=== PATIENT | female | born 1945 | race Caucasian/White ===

== ENCOUNTER 2016-11-25 15:56 | Inpatient (IN) | payer BC ==
[~2016-11-25] VITALS: Ht 157.5 cm; Wt 51.3 kg
[2016-11-25 15:56] VITALS: BP_SYST 131
[2016-11-25 16:25] LABS: HEMATOCRIT 39.7 % (36-48); HEMOGLOBIN 13.1 g/dL (12.0-16.0); MEAN CORPUSCULAR HEMOGLOBIN 28 pg (27-31); MEAN CORPUSCULAR HGB CONC 33 % (32-36); MEAN CORPUSCULAR VOLUME 85 fL (79.0-98.0); PLATELET COUNT (AUTO) 248 K/uL (130-430); RED BLOOD CELL COUNT(AUTO) 4.69 MIL/uL (4.2-6.2); RED CELL DISTRIBUTION WIDTH 13.8 % (9.0-15.0)
[2016-11-25 16:30] LABS: CALCIUM 9.6 mg/dL (8.4-11.0); CREATININE 1.07 mg/dL (0.55-1.30)
[2016-11-25] MEDS ORDERED: ONDANSETRON HCL 4 MG/2 ML VIAL IVP ONE (16:30)
[2016-11-25] MEDS ORDERED: NACL 0.9% 1,000 ML IV ONE (16:30)
[2016-11-25 16:33] LABS: POTASSIUM 2.6 mmol/L (3.5-5.1)
[2016-11-25 16:35] LABS: TOTAL BILIRUBIN 0.4 mg/dL (0.0-1.0); TOTAL PROTEIN, SERUM 7.4 g/dL (6.4-8.3)
[2016-11-25 16:38] LABS: BAND % (MANUAL) 5 % (0-6); BASOPHILS % (MANUAL) 0 % (0-2); EOSINOPHILS % (MANUAL) 0 % (0-7); LYMPHOCYTES % (MANUAL) 4 % (20-46); MONOCYTES % (MANUAL) 3 % (0-11)
[2016-11-25 16:46] LABS: PROTHROMBIN TIME 10.7 SECS (9.5-12.5)
[2016-11-25 17:09] LABS: BILIRUBIN,URINE NEGATIVE (NEGATIVE); BLOOD, URINE 2+ (NEGATIVE); CLARITY/URINE CLEAR (CLEAR); COLOR,URINE YELLOW (YELLOW); GLUCOSE,URINE 2+ (NEGATIVE); KETONES,URINE 2+ (NEGATIVE); LEUKOCYTE ESTERASE ,URINE NEGATIVE (NEGATIVE); NITRITE, URINE NEGATIVE (NEGATIVE); PH,URINE 5.5 (5.0-8.0); PROTEIN URINE NEGATIVE (NEGATIVE); UROBILINOGEN,URINE 0.2 (0.2-1.0)
[2016-11-25 17:14] LABS: BACTERIA,URINE FEW /HPF (None Seen); MUCUS,URINE None Seen /LPF (None Seen); RBC,URINE 0-3 /HPF (0-3); WBC,URINE NONE SEEN /HPF (0-3)
[2016-11-25] MEDS ORDERED: OMEP40CA33 PO (17:27)
[2016-11-25] MEDS ORDERED: LEVO25TA7 PO (17:27)
[2016-11-25] MEDS ORDERED: DONE5TAB3 PO (17:27)
[2016-11-25] MEDS ORDERED: METO25TA3 PO (17:27)
[2016-11-25] MEDS ORDERED: POTASSIUM CHLORIDE 20 MEQ/PKT PACKET PO ONE (17:30)
[2016-11-25] MEDS ORDERED: KCL 20 mEq in 100 mL (PREMIX) 100 ML IV ONE (17:30)
[2016-11-25 19:26] VITALS: BP_SYST 136
[2016-11-25] MEDS ORDERED: DONEPEZIL HCL 5 MG TABLET (ARICEPT) PO SCH (21:00)
[2016-11-25 23:24] LABS: ALBUMIN 3.7 g/dL (3.4-4.8); CALCIUM 9.5 mg/dL (8.4-11.0); CREATININE 0.87 mg/dL (0.55-1.30); TOTAL BILIRUBIN 0.4 mg/dL (0.0-1.0); TOTAL PROTEIN, SERUM 6.8 g/dL (6.4-8.3)
[2016-11-26] MEDS ORDERED: 0.45% NACL 1,000 ML IV SCH (01:00)
[2016-11-26 03:44] VITALS: BP_SYST 130
[2016-11-26 06:30] LABS: BASOPHILS % (AUTO) 0.2 % (0.0-2.0); EOSINOPHILS % (AUTO) 0.3 % (0.0-4.0); HEMATOCRIT 37.1 % (36-48); HEMOGLOBIN 12.4 g/dL (12.0-16.0); LYMPHOCYTES # (AUTO) 1.5 K/uL (1.0-5.5); LYMPHOCYTES % (AUTO) 12.1 % (20.5-51.5); MEAN CORPUSCULAR HEMOGLOBIN 28 pg (27-31); MEAN CORPUSCULAR HGB CONC 33 % (32-36); MEAN CORPUSCULAR VOLUME 85 fL (79.0-98.0); MONOCYTES # (AUTO) 0.7 K/uL (0.0-1.0); MONOCYTES % (AUTO) 5.4 % (1.7-9.3); NEUTROPHILS # (AUTO) 10.4 K/uL (1.8-7.7); PLATELET COUNT (AUTO) 204 K/uL (130-430); RED BLOOD CELL COUNT(AUTO) 4.38 MIL/uL (4.2-6.2); RED CELL DISTRIBUTION WIDTH 13.7 % (9.0-15.0); WHITE BLOOD COUNT (AUTO) 12.6 K/uL (4.8-10.8)
[2016-11-26 07:40] VITALS: BP_SYST 138
[2016-11-26 08:02] LABS: ALBUMIN 3.5 g/dL (3.4-4.8); CALCIUM 9.5 mg/dL (8.4-11.0); CREATININE 1.02 mg/dL (0.55-1.30); POTASSIUM 3.7 mmol/L (3.5-5.1); TOTAL BILIRUBIN 0.6 mg/dL (0.0-1.0); TOTAL PROTEIN, SERUM 6.8 g/dL (6.4-8.3)
[2016-11-26] MEDS ORDERED: METOPROLOL SUCCINATE 25 MG TAB.SR.24H (TOPROL XL) PO SCH (09:00)
[2016-11-26] MEDS ORDERED: PANTOPRAZOLE SODIUM 40 MG TAB PO SCH (09:00)
[2016-11-26] MEDS ORDERED: ENOXAPARIN SODIUM 30 MG/0.3 ML SYRINGE SUBCUT SCH (09:00)
[2016-11-26] MEDS ORDERED: LEVOTHYROXINE SODIUM 0.025 MG TABLET PO SCH (09:00)
[2016-11-26] MEDS ORDERED: cefTRIAXone 1 GM IVPB PREMIX 50 ML IV ONE (09:15)
[2016-11-26] MEDS ORDERED: ACETAMINOPHEN 325 MG TABLET PO ONE (09:30)
[2016-11-26] MEDS ORDERED: CIPR-211 PO (10:05)
[2016-11-26 10:54] VITALS: BP_SYST 110
== END 2016-11-26 11:25 | disposition home or self-care (01) | DRG 641 ==
LOC: SED 15:56 → STU 18:57
DX: E87.6 Hypokalemia (principal); D72.829 Elevated white blood cell count, unspecified; F03.90 Unspecified dementia, unspecified severity, without behavioral disturbance, psychotic disturbance, mood disturbance, and anxiety; I10 Essential (primary) hypertension; Z79.899 Other long term (current) drug therapy; T50.905A Adverse effect of unspecified drugs, medicaments and biological substances, initial encounter; Y92.89 Other specified places as the place of occurrence of the external cause
CPT/HCPCS: 36415; 80053; 81000-TC; 82150-TC; 83690-TC; 85007; 85025; 85027; 85610-TC; 85730-TC; 93005; 96361; 96365; 96375; 99285; J0696; J1650; J2405; J3480; J7030; J7040